=== PATIENT | male | born 1965 | race African-American/Black ===

== ENCOUNTER 2018-01-24 22:16 | Inpatient (IN) | payer OTHER, MEDICARE ==
[~2018-01-24] VITALS: Ht 193 cm; Wt 140.2 kg
[~2018-01-24 22:16] MED LIST: CALCIUM ACETAT667 M3 PO; METOPROLOL TART25 M1 PO; OXYCODONE5 M1 PO; PERCOCET 325 MG1 TA2 PO
--- NOTE | 2018-01-24 22:44 | ED CARDIAC/CP/PALPITATIONS ---
History of Present Illness General Chief Complaint: Dyspnea (COPD, CHF, Other) Stated Complaint: TROUBLE BREATHING X1 HOUR Source: patient, family Exam Limitations: no limitations Vital Signs & Intake/Output Vital Signs & Intake/Output Vital Signs Date Time Temp Pulse Resp B/P B/P Pulse O2 O2 Flow FiO2 Mean Ox Delivery Rate 01/240 96.9 106 22 188/110 92 Room Air ED Intake and Output 01/25 0000 01/24 1200 Intake Total Output Total Balance Patient 309 lb Weight Reconcile Medications Calcium Acetate 667 MG CAP 4 CAP PO AD PHOSPHORUS BINDER (Reported) Metoprolol Tartrate (Lopressor) 25 MG TAB 75 MG PO BID BP (Reported) OXYCODONE HCL (Oxycodone) 5 MG CAP 1-2 TAB PO Q6P PRN PAIN Triage Note: PT TO TRIAGE C/O SOB X 1HR THAT BEGAN AT REST. PER PT "FEELS LIKE I'M BUILDING UP WITH FLUID." PT ON HEMODIALYSIS M,W,F. AV FISTULA TO R ARM. RA SAT 92-93% IN TRIAGE. Triage Nurses Notes Reviewed? yes HPI: Patient was sitting watching TV when he developed a pressure sensation in the left anterior aspect of his chest as well as some nausea. Patient also began to have a nonproductive cough and felt short of breath. He has never had similar symptoms like this in the past. Patient is on dialysis and goes Thursday and Thursday and he has not missed dialysis. Patient states he did not take his medication today. Patient states the chest pain lasted approximately 20 minutes and then went away on its own. He states the nausea and lasted a little bit longer but it resolved while on the way here. Patient still feels slightly short of breath and has a nonproductive cough. (Brien PLASENCIA,Jaden Ac) Allergies Coded Allergies: NO KNOWN ALLERGIES (01/24/18) (Yaya PLASENCIA,Yoselin) Past History Travel History Traveled to [place] past 21 day No Medical History Any Pertinent Medical History? 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 No (Brien PLASENCIA,Jaden Ac) Review of Systems Review of Systems Constitutional: Reports: no symptoms. EENTM: Reports: no symptoms. Respiratory: Reports: see HPI, cough, short of breath. Cardiovascular: Reports: see HPI, chest pain. GI: Reports: see HPI, nausea. Genitourinary: Reports: no symptoms. Musculoskeletal: Reports: no symptoms. Skin: Reports: no symptoms. Neurological/Psychological: Reports: no symptoms. Hematologic/Endocrine: Reports: no symptoms. Immunologic/Allergic: Reports: no symptoms. All Other Systems: Reviewed and Negative (Brien PLASENCIA,Jaden Ac) Physical Exam Physical Exam General Appearance: well developed/nourished, alert, awake, anxious, moderate distress Head: atraumatic, normal appearance Eyes: Bilateral: PERRL, EOMI. Ears, Nose, Throat: normal pharynx, normal ENT inspection, hearing grossly normal Neck: normal inspection, supple, full range of motion, NO JVD EVIDENT BUT HE HAS A THICK NECK SO IT JUST MAY NOT BE VISABLE Respiratory: normal breath sounds, chest non-tender, no respiratory distress, lungs clear Cardiovascular: normal peripheral pulses, tachycardia Gastrointestinal: normal bowel sounds, soft, non-tender, OBESE Back: normal inspection, normal range of motion Extremities: normal inspection, normal capillary refill, normal range of motion, pedal edema Neurologic/Psych: no motor/sensory deficits, awake, alert, oriented x 3, normal mood/affect Skin: intact, diaphoresis Lymphatic: no anterior cervical dana Core Measures ACS in differential dx? Yes CVA/TIA Diagnosis No Sepsis Present: No Sepsis Focused Exam Completed? No (Brien PLASENCIA,Jaden Ac) Progress Differential Diagnosis: AMI, aortic dissection, hyperthyroid, musculoskeletal pain, myocarditis, pericarditis, pneumonia, pneumothorax Plan of Care: Orders Procedure Date/time Status Renal Dialysis Diet 01/25 B Active Patient Data 01/25 2356 Active ED Holding Orders 01/24 2353 Active Admit to inpatient 01/24 2353 Active Vital Signs 01/24 2353 Active Code Status 01/24 2353 Active Add-on Test (ER Only) 01/24 2349 Active MAGNESIUM 01/24 2244 Active Telemetry/Police Detective 01/25 2236 Active TROPONIN LEVEL 01/25 2236 Active COMPREHENSIVE METABOLIC PANEL 01/25 2236 Active CBC WITHOUT DIFFERENTIAL 01/25 2236 Complete EKG 01/25 2220 Active Laboratory Tests 01/24/184: Anion Gap 20 H, Estimated GFR 4 L, BUN/Creatinine Ratio 3.8 L, Glucose 101 H , Calcium 7.7 L, Magnesium Pending, Total Bilirubin 0.4, AST 22, ALT 28, Alkaline Phosphatase 402 H, Troponin I 0.06, Total Protein 7.1, Albumin 4.1, Globulin 3.0, Albumin/Globulin Ratio 1.4, CBC w Diff NO MAN DIFF REQ, RBC 3.40 L, MCV 91.4, MCH 29.8, MCHC 32.6 L, RDW 14.8 H, MPV 7.9, Gran % 75.4 H, Lymphocytes % 9.9 L, Monocytes % 9.0, Eosinophils % 5.1 H, Basophils % 0.6, Absolute Granulocytes 4.0, Absolute Lymphocytes 0.5 L, Absolute Monocytes 0.5, Absolute Eosinophils 0.3, Absolute Basophils 0 11:15 PM PATIENT SIGNED OUT TO ME BY DR URENA. PENDING LABS, WILL REQUIRE ADMISSION TO TELEMETRY. EKG CHANGES, CHEST PAIN. 12 AM D/W DR GONZALEZ. REMAINS CHEST PAIN FREE. ADMITTED TO TELEMETRY. ENDORSED TO MOD. WILL REQUIRE NEPHRO CONSULTATION FOR DIALYSIS IN AM. (Yoselin Javier MD) Diagnostic Imaging: Viewed by Me: Radiology Read. Discussed w/RAD: Radiology Read. Initial ED EKG: S TACH AT 1-3, DIFFUSE ST DEPRESSIONS CONSISTANT WITH ISCHEMIC CHANGES, NO OLD EKG TO COMPARE Rhythm Strip: sinus tachycardia Hand-Off Endorsed To: Yoselin Javier MD Endorsed Time: 2299 Pending: labs, Xray (Brien PLASENCIA,Jaden Ac) Departure Departure Disposition: STILL A PATIENT Condition: Stable Clinical Impression Primary Impression: ACS (acute coronary syndrome) Referrals: Mannie PLASENCIA,Richard Cheatham Departure Forms: Customer Survey General Discharge Information (Brien PLASENCIA,Jaden Ac) Departure Time of Disposition: 2350 Admission Note Spoke With: Jose Gonzalez MD Documentation of Exam: Documentation of any treatments & extenuating circumstances including Concerns Regarding Discharge (functional status, medication knowledge or non-compliance, living conditions, etc.) that warrant an admission rather than observation: [ TELE MONITOR, SERIAL EKG/TROPONIN, CARDIOLOGYL EVALUATION, ECHOCARDIOGRAM, NEPHROLOGY CONSULTATION] (Yaya PLASENCIA,Yoselin) Critical Care Note Critical Care Note Critical Care Time: mins: (90 MIN) (Brien PLASENCIA,Jaden Ac)
[2018-01-24 22:53] LABS: ABSOLUTE BASOPHIL COUNT 0 /CUMM (0.0-0.2); ABSOLUTE EOSINOPHIL COUNT 0.3 /CUMM (0.0-0.7); ABSOLUTE LYMPH COUNT 0.5 /CUMM (1.2-3.4); ABSOLUTE MONOCYTE COUNT 0.5 /CUMM (0.10-0.60); BASOPHIL % 0.6 % (0.0-2.0); EOSINOPHIL % 5.1 % (0-5); GRANULOCYTE % 75.4 % (42.2-75.2); MEAN CORPUSCULAR HGB 29.8 PG (27.0-31.0); MEAN CORPUSCULAR HGB CONC 32.6 G/DL (33.0-37.0); MEAN CORPUSCULAR VOLUME 91.4 FL (80.0-94.0); MEAN PLATELET VOLUME 7.9 FL (7.4-10.4); PLATELET COUNT 143 /CUMM (130-400); RBC DISTRIBUTION WIDTH 14.8 % (11.5-14.5); WHITE BLOOD CELL COUNT 5.4 /CUMM (4.8-10.8)
--- NOTE | 2018-01-24 23:16 | RADIOLOGY REPORT ---
EXAMINATION: XR PORTABLE CHEST CLINICAL INFORMATION: Chest pain COMPARISON: None TECHNIQUE: Portable frontal view of the chest was obtained. FINDINGS: There is slight elevation of the right hemidiaphragm. No focal consolidation is seen bilaterally. There is mild fullness of the central vasculature. No evidence of pneumothorax, significant pleural effusion, or overt pulmonary edema. Cardiac size appears within normal limits for technique. No acute osseous findings are seen. IMPRESSION: Mild fullness of the central vasculature, which could reflect mild congestion in the proper clinical setting. No additional acute findings identified.
--- NOTE | 2018-01-25 00:13 | History & Physical ---
Reza Wang 01/25/18 0012: General Information and HPI MD Statement: I have seen and personally examined DENY HERRON and documented this H&P. The patient is a 53 year old M who presented with a patient stated chief complaint of [Chest pain]. Source of Information: patient, old records Exam Limitations: no limitations History of Present Illness: is a 53 yo man with PMHx. of HTN, ESRD s/p renal transplant at 2011 presented to ED with a c/o SOB and chest pain started today at evening. He report that the SOB started suddenlty while he was setting at rest, no exacerbation or relieving factors, associated with mild left sided chest pain, pressure in nature, with no radiation, last for about 20 minutes and then resolved, patient denies any pain during the encounter, he denies any heart racing, vision changes, no medications administer at home. 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 EENTM: Reports: no symptoms. Cardiovascular: Reports: no symptoms. Respiratory: Reports: short of breath. GI: Reports: no symptoms. Genitourinary: Reports: no symptoms. Musculoskeletal: Reports: no symptoms. Skin: Reports: no symptoms. Neurological/Psychological: Reports: no symptoms. Hematologic/Endocrine: Reports: no symptoms. Immunologic/Allergic: Reports: no symptoms. All Other Systems: Reviewed and Negative Exam & Diagnostic Data Last 24 Hrs of Vital Signs/I&O Vital Signs Date Time Temp Pulse Resp B/P B/P Pulse O2 O2 Flow FiO2 Mean Ox Delivery Rate 01/25 1416 73 202/110 03/05 1024 72 140/80 01/25 0800 Nasal 3.0L Cannula 01/25 0630 97.8 64 16 152/110 95 03/05 0538 97.8 64 18 152/110 95 Nasal 3.0L Cannula 01/25 0145 98.1 63 18 166/106 97 Nasal 3.0L Cannula 01/25 0141 97 Nasal 3.0L Cannula 01/25 0103 97.0 62 20 168/92 97 Nasal 3.0L Cannula 01/25 0014 62 22 95 Nasal 4.0L Cannula 01/24 2220 96.9 106 22 188/110 92 Room Air Intake & Output 01/25 1600 01/25 0800 03 0000 Intake Total 510 Output Total 50 Balance 460 Intake, IV 150 Intake, Oral 360 Number 1 Bowel Movements Output, Urine 50 Patient 309 lb Weight Physical Exam General Appearance Alert, Oriented X3, No Acute Distress Skin No Rashes, No Breakdown, No Significant Lesion Neck Supple, No JVD Lymphatic Axillary nl, Cervical nl Cardiovascular Regular Rate, Normal S1, Normal S2, No Murmurs Lungs Clear to Auscultation, Normal Air Movement Abdomen Normal Bowel Sounds, Soft, No Tenderness Extremities No Edema, Normal Pulses Vascular Normal Pulses, Pulses Symmetrical Last 24 Hrs of Labs/Christiano: Laboratory Tests 01/25/18 1405: APTT Pending 01/25/18 1150: Hep Bs Antigen NONREACTIVE, Hep Bs Antibody REACTIVE 01/25/18 1109: Troponin I 42.60 *H 01/25/18 0530: Phosphorus 6.8 H, Magnesium 2.2 01/25/18 0530: Anion Gap 18 H, Estimated GFR 3 L, BUN/Creatinine Ratio 3.7 L, Troponin I 35.30 *H, Triglycerides 122, Cholesterol 178, LDL Cholesterol, Calc 105, HDL Cholesterol 49, Cholesterol/HDL Ratio 4, TSH 2.360, TSH &T3 &Free T4 Intrp 2.360 , CBC w Diff MAN DIFF ORDERED, RBC 3.19 L, MCV 89.7, MCH 30.7, MCHC 34.3, RDW 14.3, MPV 8.6, Gran % 78.6 H, Lymphocytes % 9.4 L, Monocytes % 8.2, Eosinophils % 3.4, Basophils % 0.4, Absolute Granulocytes 5.2, Segmented Neutrophils 70, Band Neutrophils 1, Absolute Lymphocytes 0.6 L, Lymphocytes 16 L, Monocytes 11 H, Absolute Monocytes 0.5, Eosinophils 2, Absolute Eosinophils 0.2, Absolute Basophils 0, Platelet Estimate ADEQUATE, Normocytic RBCs VERIFIED, Normochromic RBCs VERIFIED 01/24/18 2244: Anion Gap 20 H, Estimated GFR 4 L, BUN/Creatinine Ratio 3.8 L, Glucose 101 H , Calcium 7.7 L, Magnesium 2.1, Total Bilirubin 0.4, AST 22, ALT 28, Alkaline Phosphatase 402 H, Troponin I 0.06, Total Protein 7.1, Albumin 4.1, Globulin 3.0, Albumin/Globulin Ratio 1.4, CBC w Diff NO MAN DIFF REQ, RBC 3.40 L, MCV 91.4, MCH 29.8, MCHC 32.6 L, RDW 14.8 H, MPV 7.9, Gran % 75.4 H, Lymphocytes % 9.9 L, Monocytes % 9.0, Eosinophils % 5.1 H, Basophils % 0.6, Absolute Granulocytes 4.0, Absolute Lymphocytes 0.5 L, Absolute Monocytes 0.5, Absolute Eosinophils 0.3, Absolute Basophils 0 Diagnostic Data EKG Results ST depression at anterolateral lead CXR Results IMPRESSION: Mild fullness of the central vasculature, which could reflect mild congestion in the proper clinical setting. No additional acute findings identified. Assessment/Plan Assessment: is a 53 yo man with PMHx. of HTN, ESRD s/p renal transplant at 2011 presented to ED with a c/o SOB and chest pain started today at evening. Found to have anterolateral ST-depression. Pain resolved prior to presentation to ED, he received 1 dose of aspirin and B-adalberto. Assessment: #NSTEMI #ESRD #Hx. of HTN Plan: -Will admitt the patient to tele floor -Case discussed with Dr. vance, no IV heparin for now given that the patient is asymptomatic and troponin negative. For now aspirin -If patient start to have +ve troponin start IV heparin - to evaluate the patient at am -Serial troponin and EKG -Nephrology consult for dialysis at am (His schedule is MON, WED, FRID) -Will continue home dose of lopressor -Statin -Will check lipid panel, TSH -Echocardiogram DVT ppx. SC heparin Full code As Ranked By This Provider Problem List: 1. ACS (acute coronary syndrome) Core Measures/Misc (08/09) Acute Coronary Syndrome ACS Diagnosis: Yes Congestive Heart Failure Congestive Heart Failure Diagnosis No Cerebrovascular Accident CVA/TIA Diagnosis: No VTE (View Protocol) VTE Risk Factors Age>40 No Mechanical VTE Prophylaxis d/t N/A MechProphylax Ordered No VTE Pharm Prophylaxis d/t NA PharmProphylax ordered Sepsis (View protocol) Sepsis Present: No Jose Vance MD 01/25/18 1217: General Information and HPI Allergies/Medications Home Med list Aspirin (Aspirin*) 81 MG TAB.CHEW 1 TAB PO DAILY heart health Atorvastatin Calcium 40 MG TABLET 1 TAB PO DAILY heart health Calcium Acetate 667 MG CAPSULE 4 CAP PO TID PHOSPHORUS BINDER (Reported) Heparin (Heparin-1/2NS 25,000 Units/500) 25,000 UNIT/500 ML (50 UNIT/ML) IV.SOLN 1 UNIT IV CONTINOUS INFUSION Acute coronary syndrome Metoprolol Tartrate 25 MG TABLET 3 TAB PO BID BP (Reported) Attending MD Review Statement Attending Statement Attending MD Statement: examined this patient, discuss w/resident/PA/MANAGER SCIENTIFIC, agreed w/resident/PA/MANAGER SCIENTIFIC, discussed with family, discussed with nursing, discussed with case mgmt, reviewed images, amended to note Attending Assessment/Plan: The patient is a 53-year-old male with history of hypertension, end-stage renal disease, status post failed renal transplant on hemodialysis. He presented to the emergency department with complaint of left-sided chest pressure. The chest pressure was an 8 out of 10 for approximately 20 minutes, and then gradually improved over the next hour. He was pain-free after an hour, and he is currently asymptomatic. No palpitations. He noted mild shortness of breath associated with the discomfort. His initial troponin was negative, however he was noted to have ST depressions on EKG. Second troponin is positive consistent with non-ST elevation myocardial infarction. Assessment: 1. End-stage renal disease on hematology 2. Acute non-ST elevation myocardial infarct, now asymptomatic Plan: * Continue aspirin * Continue metoprolol * Continue IV heparin * Echocardiogram * Dialysis as per renal * Transfer to [facility] for cardiac catheterization with Dr. Norman, and percutaneous coronary intervention if indicated.
[2018-01-25 01:45] VITALS: BP 166/106
[2018-01-25 05:38] VITALS: BP 152/110
[2018-01-25 06:02] LABS: ABSOLUTE BASOPHIL COUNT 0 /CUMM (0.0-0.2); ABSOLUTE EOSINOPHIL COUNT 0.2 /CUMM (0.0-0.7); ABSOLUTE GRANULOCYTE CT 5.2 /CUMM (1.4-6.5); ABSOLUTE LYMPH COUNT 0.6 /CUMM (1.2-3.4); ABSOLUTE MONOCYTE COUNT 0.5 /CUMM (0.10-0.60); BASOPHIL % 0.4 % (0.0-2.0); EOSINOPHIL % 3.4 % (0-5); GRANULOCYTE % 78.6 % (42.2-75.2); HEMATOCRIT 28.6 % (42-52); MEAN CORPUSCULAR HGB 30.7 PG (27.0-31.0); MEAN CORPUSCULAR HGB CONC 34.3 G/DL (33.0-37.0); MEAN CORPUSCULAR VOLUME 89.7 FL (80.0-94.0); MEAN PLATELET VOLUME 8.6 FL (7.4-10.4); PLATELET COUNT 151 /CUMM (130-400); RBC DISTRIBUTION WIDTH 14.3 % (11.5-14.5); RED BLOOD CELL CT 3.19 /CUMM (4.70-6.10); WHITE BLOOD CELL COUNT 6.6 /CUMM (4.8-10.8)
[2018-01-25 06:30] VITALS: BP 152/110
--- NOTE | 2018-01-25 07:02 | Event Note ---
Event Note Event Note: Was notified patient had 13 beat run of vtach Patient was asymptomatic. Denied any chest pain or palpitations. EKG: no acute changes from previous EKG Trop: 35.[address] Vance IV heparin ordered Repeat EKG and Troponin
--- NOTE | 2018-01-25 07:56 | PN- Housestaff ---
Subjective Follow-up For: NSTEMI Tele-Events Since Last Visit: 13 BEAT V.TACH OVERNIHT Subjective: seen and examined Patient reports having shortness of breath and unable to lye Objective Last 24 Hrs of Vital Signs/I&O Vital Signs Date Time Temp Pulse Resp B/P B/P Pulse O2 O2 Flow FiO2 Mean Ox Delivery Rate 01/25 0630 97.8 64 16 152/110 95 01/25 0538 97.8 64 18 152/110 95 Nasal 3.0L Cannula 01/25 0145 98.1 63 18 166/106 97 Nasal 3.0L Cannula 01/25 0141 97 Nasal 3.0L Cannula 01/25 0103 97.0 62 20 168/92 97 Nasal 3.0L Cannula 01/25 0014 62 22 95 Nasal 4.0L Cannula 01/24 2220 96.9 106 22 188/110 92 Room Air Intake & Output 01/25 0800 01/25 0000 01/24 1600 Intake Total Output Total Balance Patient 140 kg Weight
--- NOTE | 2018-01-25 09:41 | Patient Discharge Instructions ---
Discharge Instructions General Discharge Information You were seen/treated for: Acute coronary syndrome ESRD on dialysis Special Instructions: Please follow up with your Director Furniture in a week Please follow up with your smoke jumper supervisor in a week Please follow up with your PCP in a week Diet Recommended Diet: Renal Dialysis Activity Activity Self Limited: Yes Acute Coronary Syndrome Inclusion Criteria At DC or during hospital stay patient has or had the following: ACS DIAGNOSIS Yes Discharge Core Measures Meds if any: Prescribed or Continued at Discharge HETAL/ARB if EF <40% No Aspirin Yes Beta-Leobardo Yes Statin Yes Meds if any: NOT Prescribed or Continued at Discharge Congestive Heart Failure Inclusion Criteria At DC or during hospital stay patient has or had the following: CHF DIAGNOSIS No Discharge Core Measures Meds if any: Prescribed or Continued at Discharge Meds if any: NOT Prescribed or Continued at Discharge Cerebrovascular accident Inclusion Criteria At DC or during hospital stay patient has or had the following: CVA/TIA Diagnosis No Discharge Core Measures Meds if any: Prescribed or Continued at Discharge Meds if any: NOT Prescribed or Continued at Discharge Venous thromboembolism Inclusion Criteria VTE Diagnosis No VTE Type NONE VTE Confirmed by (Test) NONE Discharge Core Measures - Per Current guidelines, there needs to be overlap - treatment for the first 5 days of Warfarin therapy. - If discharged on Warfarin prior to 5 days of - overlap therapy, the patient will need to be - assessed for post discharge needs including - *Post discharge parental anticoagulation - *Warfarin and/or parental anticoagulation education - *Follow up date to check INR post discharge At least 5 days overlap therapy as Inpatient No Meds if any: Prescribed or Continued at Discharge Note: Overlap Therapy is Warfarin and Anticoagulant Meds if any: NOT Prescribed or Continued at Discharge
--- NOTE | 2018-01-25 09:45 | RADIOLOGY REPORT ---
EXAMINATION: XR PORTABLE CHEST CLINICAL INFORMATION: Shortness of breath. COMPARISON: Chest radiograph dated 01/24/2018 TECHNIQUE: Portable frontal view of the chest was obtained. FINDINGS: Study is degraded secondary to patient rotation. Cardiomediastinal silhouette appears similar to prior study. There is uncoiling and atherosclerotic calcification of the aorta. No focal consolidation to indicate pneumonia. Right mid lung linear opacities, likely representing atelectasis. Pulmonary vasculature is stable in appearance. No pneumothorax or large pleural effusion. IMPRESSION: Stable appearance of the heart and lungs when compared with 01/24/2018 chest radiograph.
[2018-01-25 10:24] VITALS: BP 140/80
--- NOTE | 2018-01-25 10:28 | Discharge Summary ---
Visit Information Visit Dates Admission Date: 01/24/18 Discharge Date: 01/25/18 Hospital Course Course Attending Physician: Jose Vance MD Primary Care Physician: Patient Has No Primary Care Dr Hospital Course: Patient is a 53 yo M with PMHx. of HTN, ESRD on dialysis M/W/F 5yrs after renal transplantation for Hypertensive renal failure. He presented to ED with a c/o SOB and chest pain started yesterday evening. He didnot miss any of his dialysis schedule. His pain resolved prior to ER arrival after a dose of aspirin and betablocker. VS at presentation are afebrile, HR 106, RR 22 BP 188/110mmHg, saturating 92 on 4L oxygen. Physical exam - AAO X3, HEENT: PERRLA, Heart s1, S2 heard no mumurs, chest - decreased air entry through out, abdomen nontender, Lower extremiteis pulses palpable. Labs did show a Cr of 14.7 -->15.5, Trop 0.06 --> 35. calcium 7.7. EKG shows sinus tachycardia with T wave depression in anterolateral leads. QTc 498. Admitted to telemetry floor under cardiology service. Overnight he remained stable hemodynamically, he did have a single run of 13 bear V.tach on monitor. Intially as troponins were negative, didnt start on any IV heparin. At around 5 : 30am his troponin raised from 0.06 to 35 followed by which he was started on IV heparin. Also started on aspirin 81mg, atorvastatin 40mg after a dose of aspirin 325mg. His quiac is grossly positive. He remained without chest pain, however did have increase in SOB with pinkish phelgm production. He underwent dialysis in this morning as per his schedule after consulting nephrology. His home medications metoprolol tartarate and calcium acetate were continued. As the Troponin elevation is concerning for ongoing acute myocardial injury, it is considered to transfer him to [facility] for emergent catheterization under Dr.Tuohy mayers service. DVT ppx. IV heparin Full code NPO for the procedure. troponin trended up to 42 at 11am. Complications: Elevated troponin requiring transfer for anticipated cath Allergies: Coded Allergies: NO KNOWN ALLERGIES (01/24/18) Significant Procedures: CXR at admission 01/24/18 IMPRESSION: Mild fullness of the central vasculature, which could reflect mild congestion in the proper clinical setting. No additional acute findings identified. CXR on 01/25/18 IMPRESSION: Stable appearance of the heart and lungs when compared with 01/24/2018 chest radiograph. ECHOCARDIOGRAM Age: 53 : 1965 Gender: M Exam Date: 01/25/2018 08:55 Ht (in): 76 Wt (lb): 308 BSA: 2.78 BP: 152 / 110 Indications: Chest Pain Rhythm: Sinus Technical Quality: Technically difficult study, FINDINGS Left Ventricle Normal size left ventricle. Borderline left ventricular systolic function. LVEF estimated at 50%. Lateral hypokinesis Right Ventricle Normal right ventricular size and function. Right Atrium Normal right atrial size. Left Atrium Mild left atrial dilatation. Mitral Valve Moderate mitral annular calcification. Aortic Valve Aortic valve mildly thickened. No aortic stenosis. Trace aortic regurgitation. Tricuspid Valve Tricuspid valve not well visualized, grossly normal. Trace tricuspid regurgitation. Right ventricular systolic pressure estimated to be elevated at 50 mmHg. Pulmonic Valve Pulmonic valve not well visualized, grossly normal. Trace pulmonic regurgitation. Pericardium No pericardial effusion. Great Vessels Normal size aortic root. CONCLUSIONS Technically difficult study, Borderline left ventricular systolic function. LVEF estimated at 50%. Lateral hypokinesis. Mild left atrial dilatation. Trace aortic regurgitation. Trace tricuspid regurgitation. Right ventricular systolic pressure estimated to be elevated at 50 mmHg. Trace pulmonic regurgitation. Jose Vance M.D. (Electronically Signed) Final Date: 25 January 2018 12:38 MEASUREMENTS (Male / Female) Normal Values 2D ECHO LV Diastolic Diameter PLAX 5.6 cm 4.2 - 5.9 / 3.9 - 5.3 cm LV Systolic Diameter PLAX 3.9 cm 2.1 - 4.0 cm LV Fractional Shortening PLAX 30.4 % 25 - 46 % LV Ejection Fraction 2D Teich 57.1 % IVS Diastolic Thickness 1.5 cm LVPW Diastolic Thickness 1.4 cm LV Relative Wall Thickness 0.5 RV Internal Dim ED PLAX 3.6 cm 1.9 - 3.8 cm LVOT Diameter 2.1 cm Aortic Root Diameter 2.5 cm LA Systolic Diameter LX 4.4 cm 3.0 - 4.0 / 2.7 - 3.8 cm Ascending Aorta Diameter 3.5 cm DOPPLER AV Peak Velocity 143.0 cm/s AV Peak Gradient 8.2 mmHg AV Mean Velocity 93.3 cm/s AV Mean Gradient 4.0 mmHg AV Velocity Time Integral 30.5 cm LVOT Peak Velocity 82.7 cm/s LVOT Peak Gradient 2.7 mmHg LVOT Mean Velocity 51.7 cm/s LVOT Mean Gradient 1.0 mmHg LVOT Velocity Time Integral 18.7 cm LVOT Stroke Volume 64.8 cm AV Area Cont Eq vti 2.1 cm AV Area Cont Eq pk 2.0 cm MV Peak Velocity 116.0 cm/s MV Peak Gradient 5.4 mmHg MV Mean Velocity 72.0 cm/s MV Mean Gradient 2.0 mmHg Mitral E Point Velocity 106.0 cm/s Mitral A Point Velocity 95.8 cm/s Mitral E to A Ratio 1.1 MV PHT Velocity 118.0 cm/s MV Deceleration [place] 346.0 cm/s MV Pressure Half Time 102.3 ms MV Area PHT 2.2 cm MV Deceleration Time 222.0 ms MR Peak Velocity 591.5 cm/s MR Peak Gradient 139.9 mmHg TR Peak Velocity 334.0 cm/s TR Peak Gradient 44.6 mmHg Right Atrial Pressure 10.0 mmHg Pulmonary Artery Systolic Pressu 54.6 mmHg Right Ventricular Systolic Press 54.6 mmHg PV Peak Velocity 89.6 cm/s PV Peak Gradient 3.2 mmHg PV Mean Velocity 57.3 cm/s PV Mean Gradient 2.0 mmHg PV Velocity Time Integral 18.7 cm DICTATED BY: Jose Vance MD DATE/TIME DICTATED:01/25/181238 UPHOLSTERY PARTS SORTER:LANE DATE/TIME TRANSCRIBED:01/25/181238 CONFIDENTIAL, DO NOT COPY WITHOUT APPROPRIATE AUTHORIZATION. <Electronically signed in Other Vendor System> SIGNED BY: Jose Vance MD 01/25/181238 Pertinent Lab Results: as above Disposition Summary Disposition Principal Diagnosis: Acute coronary syndrome - NSTEMI Additional Diagnosis: ESRD on dialysis M/W/F Discharge Disposition: other general hospital Discharge Instructions General Discharge Information Code Status: Full Code Patient's Diet: Renal dialysis diet Patient's Activity: as tolerated Follow-Up Instructions/Appts: Please follow up with your Auto Damage Appraiser in a week please follow up with your bead wrapper in a week Medications at Discharge Discharge Medications: Continue taking these medications: Metoprolol Tartrate (Metoprolol Tartrate) 25 MG TABLET 3 Tablet ORAL TWICE DAILY Comments: Last Taken: 01/25/18 Time: 8AM Calcium Acetate (Calcium Acetate) 667 MG CAPSULE 4 Capsule ORAL THREE TIMES DAILY Comments: NOT GIVEN IN HOSPITAL Start taking the following new medications: Atorvastatin Calcium (Atorvastatin Calcium) 40 MG TABLET 1 Tablet ORAL DAILY Qty = 30 No Refills Comments: Last Taken: 01/24/18 Time: 5PM Aspirin (Aspirin*) 81 MG TAB.CHEW 1 Tablet ORAL DAILY Qty = 30 No Refills Comments: NOT GIVEN IN HOSPITAL Heparin (Heparin-1/2NS 25,000 Units/500) 25,000 UNIT/500 ML (50 UNIT/ML) IV.SOLN 1 Unit INTRAVEN CONTINUOUS INFUSION Qty = 1 No Refills Comments: Last Taken: 01/25/18 Time: 8AM Copies To: Glenn PLASENCIA,Darwin Escudero; Emerson PLASENCIA,Corey Florentino; Rajiv PLASENCIA,Jose Attending MD Review Statement Documenting Attending: Jose Vance MD
[2018-01-25] MEDS ORDERED: ATORVASTATIN CA40 M1 PO (10:31)
[2018-01-25] MEDS ORDERED: ASPIRIN81 M4 PO (10:31)
[2018-01-25] MEDS ORDERED: HEPARIN-1/25000 UNI1 IV (10:34)
--- NOTE | 2018-01-25 10:50 | Cons- Nephrology ---
See Addendum General Information and HPI Consulting Request Date of Consult: 01/25/18 Requested By: Jose Vance MD Reason for Consult: ESRD Source of Information: patient, old records Exam Limitations: no limitations History of Present Illness: The patient is a 53-year-old man with a past medical history most significant for end-stage renal disease status post failed renal transplant on hemodialysis, hypertension who presented to the emergency room with chest pain and shortness of breath which began last night. Initial troponin negative however the second troponin 35.3. Chest x-ray with mild fullness of the central vasculature. The patient does not think he could lay flat and says he would feel much better with dialysis. Tentative plans to transfer him to [facility] later this afternoon for cardiac cath. His last dialysis was on Thursday and he left at 0.3 kg below his target weight. Should note that he gets approximately 2-3 L up with dialysis and generally runs high blood pressures without any significant drops. Allergies/Medications Allergies: Coded Allergies: NO KNOWN ALLERGIES (01/24/18) Home Med List: Aspirin (Aspirin*) 81 MG TAB.CHEW 1 TAB PO DAILY heart health Atorvastatin Calcium 40 MG TABLET 1 TAB PO DAILY heart health Calcium Acetate 667 MG CAPSULE 4 CAP PO TID PHOSPHORUS BINDER (Reported) Heparin (Heparin-1/2NS 25,000 Units/500) 25,000 UNIT/500 ML (50 UNIT/ML) IV.SOLN 1 UNIT IV CONTINOUS INFUSION Acute coronary syndrome Metoprolol Tartrate 25 MG TABLET 3 TAB PO BID BP (Reported) Current Medications: Current Medications Sig/Barbara Start time Last Medication Dose Route Stop Time Status Admin Aspirin 0 .STK-MED ONE 01/24 2247 DC PO Aspirin 325 MG ONCE ONE 01/24 2245 DC 01/24 PO 01/24 Atorvastatin Calcium 40 MG 1700 01/25 1700 AC PO Heparin Sodium/ 25,000 UNIT Q24H 01/25 0715 AC 01/25 Dextrose IV 0800 Dextrose/Water 500 ML Metoprolol Tartrate 75 MG BID 01/25 1000 CAN PO Metoprolol Tartrate 75 MG BID 01/25 1000 AC 01/25 PO 0800 Metoprolol Tartrate 0 .STK-MED ONE 01/24 2247 DC PO Metoprolol Tartrate 75 MG ONCE ONE 01/24 2245 DC 01/24 PO 03/04 2246 2243 Multivitamins 1 TAB DAILY 01/25 1000 AC 01/25 PO 0800 Potassium Chloride 60 MEQ ONCE ONE 01/25 0600 DC PO 01/25 0601 Review of Systems Review of Systems: Complete 14 point ROS neg except as per HPI. 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 Home Smoking Status: Former Smoker ETOH Use: denies use Illicit Drug Use: denies illicit drug use Exam & Diagnostic Data Vital Signs and I&O Vital Signs Date Time Temp Pulse Resp B/P B/P Pulse O2 O2 Flow FiO2 Mean Ox Delivery Rate 01/25 1024 72 140/80 01/25 0800 Nasal 3.0L Cannula 01/25 0630 97.8 64 16 152/110 95 01/25 0538 97.8 64 18 152/110 95 Nasal 3.0L Cannula 01/25 0145 98.1 63 18 166/106 97 Nasal 3.0L Cannula 01/25 0141 97 Nasal 3.0L Cannula 01/25 0103 97.0 62 20 168/92 97 Nasal 3.0L Cannula 01/25 0014 62 22 95 Nasal 4.0L Cannula 01/24 2220 96.9 106 22 188/110 92 Room Air Intake & Output 01/25 1600 01/25 0400 01/24 1600 01/24 0400 01/23 1600 01/23 0400 Intake Total Output Total Balance Patient 309 lb Weight Physical Exam: Gen - mildly dyspneic Head - NCAT Eyes - anicteric sclera, EOMI Neck - supple, no LAD CV - RRR, no m/r/g Chest - scant basilar crackles without wheezes/rhonchi Abd - soft, NTND, morbidly obese Upper ext - RUE AVF +thrill/+bruit, warm, no edema Lower ext - warm, no significant edema Skin - no rash or jaundice Neuro - AOX3, grossly nonfocal Results Pertinent Lab Results: Laboratory Tests 01/25 01/25 0530 0530 Chemistry Sodium (137 - 145 mmol/L) 139 Potassium (3.5 - 5.1 mmol/L) 4.5 Chloride (98 - 107 mmol/L) 101 Carbon Dioxide (22 - 30 mmol/L) 20 L Anion Gap (5 - 16) 18 H BUN (9 - 20 mg/dL) 58 H Creatinine (0.7 - 1.2 mg/dL) 15.5 *H Estimated GFR (>60 ml/min) 3 L BUN/Creatinine Ratio (7 - 25 %) 3.7 L Phosphorus (2.5 - 4.5 mg/dL) 6.8 H Magnesium (1.6 - 2.3 mg/dL) 2.2 Troponin I (<0.11 ng/ml) 35.30 *H Triglycerides (<150 mg/dL) 122 Cholesterol (< 200 MG/DL) 178 LDL Cholesterol, Calc (65 - 129 mg/dL) 105 HDL Cholesterol (40 - 60 mg/dL) 49 Cholesterol/HDL Ratio (0.00 - 4.88 %) 4 TSH (0.270 - 4.200 uIU/mL) 2.360 TSH &T3 &Free T4 Intrp (0.27 - 4.20 uIU/mL) 2.360 Hematology CBC w Diff MAN DIFF ORDERED WBC (4.8 - 10.8 /CUMM) 6.6 RBC (4.70 - 6.10 /CUMM) 3.19 L Hgb (14.0 - 18.0 G/DL) 9.8 L Hct (42 - 52 %) 28.6 L MCV (80.0 - 94.0 FL) 89.7 MCH (27.0 - 31.0 PG) 30.7 MCHC (33.0 - 37.0 G/DL) 34.3 RDW (11.5 - 14.5 %) 14.3 Plt Count (130 - 400 /CUMM) 151 MPV (7.4 - 10.4 FL) 8.6 Gran % (42.2 - 75.2 %) 78.6 H Lymphocytes % (20.5 - 51.1 %) 9.4 L Monocytes % (1.7 - 9.3 %) 8.2 Eosinophils % (0 - 5 %) 3.4 Basophils % (0.0 - 2.0 %) 0.4 Absolute Granulocytes (1.4 - 6.5 /CUMM) 5.2 Segmented Neutrophils (42.2 - 75.2 %) 70 Band Neutrophils (0.0 - 5.0 %) 1 Absolute Lymphocytes (1.2 - 3.4 /CUMM) 0.6 L Lymphocytes (20.5 - 51.1 %) 16 L Monocytes (1.7 - 9.3 %) 11 H Absolute Monocytes (0.10 - 0.60 /CUMM) 0.5 Eosinophils (0 - 5.0 %) 2 Absolute Eosinophils (0.0 - 0.7 /CUMM) 0.2 Absolute Basophils (0.0 - 0.2 /CUMM) 0 Platelet Estimate (ADEQUATE) ADEQUATE Normocytic RBCs VERIFIED Normochromic RBCs VERIFIED 01/24 2244 Chemistry Sodium (137 - 145 mmol/L) 139 Potassium (3.5 - 5.1 mmol/L) 3.4 L Chloride (98 - 107 mmol/L) 100 Carbon Dioxide (22 - 30 mmol/L) 20 L Anion Gap (5 - 16) 20 H BUN (9 - 20 mg/dL) 56 H Creatinine (0.7 - 1.2 mg/dL) 14.7 *H Estimated GFR (>60 ml/min) 4 L BUN/Creatinine Ratio (7 - 25 %) 3.8 L Glucose (65 - 99 mg/dL) 101 H Calcium (8.4 - 10.2 mg/dL) 7.7 L Magnesium (1.6 - 2.3 mg/dL) 2.1 Total Bilirubin (0.2 - 1.3 mg/dL) 0.4 AST (17 - 59 U/L) 22 ALT (21 - 72 U/L) 28 Alkaline Phosphatase (< 127 U/L) 402 H Troponin I (<0.11 ng/ml) 0.06 Total Protein (6.3 - 8.2 g/dL) 7.1 Albumin (3.5 - 5.0 g/dL) 4.1 Globulin (1.9 - 4.2 gm/dL) 3.0 Albumin/Globulin Ratio (1.1 - 2.2 %) 1.4 Hematology CBC w Diff NO MAN DIFF REQ WBC (4.8 - 10.8 /CUMM) 5.4 RBC (4.70 - 6.10 /CUMM) 3.40 L Hgb (14.0 - 18.0 G/DL) 10.1 L Hct (42 - 52 %) 31.0 L MCV (80.0 - 94.0 FL) 91.4 MCH (27.0 - 31.0 PG) 29.8 MCHC (33.0 - 37.0 G/DL) 32.6 L RDW (11.5 - 14.5 %) 14.8 H Plt Count (130 - 400 /CUMM) 143 MPV (7.4 - 10.4 FL) 7.9 Gran % (42.2 - 75.2 %) 75.4 H Lymphocytes % (20.5 - 51.1 %) 9.9 L Monocytes % (1.7 - 9.3 %) 9.0 Eosinophils % (0 - 5 %) 5.1 H Basophils % (0.0 - 2.0 %) 0.6 Absolute Granulocytes (1.4 - 6.5 /CUMM) 4.0 Absolute Lymphocytes (1.2 - 3.4 /CUMM) 0.5 L Absolute Monocytes (0.10 - 0.60 /CUMM) 0.5 Absolute Eosinophils (0.0 - 0.7 /CUMM) 0.3 Absolute Basophils (0.0 - 0.2 /CUMM) 0 Imaging/Other Studies: Chest x-ray reviewed Assessment/Plan Assessment/Recommendations Assessment: ESRD - Due for HD today. Will be performing HD prior to transfer for cardiac cath. NSTEMI - Pending transfer to . Ideally needs to be able to lay flat to avoid BIPAP/Intubation. Will remove fluid as tolerated with dialysis with careful attention to hemodynamics. Anemia - Hg 9.8 - Not on GINO as outpatient. Monitor Hg - may need to start Epogen. Recommendations: -HD today - 2-3L UF as tolerated by hemodynamics -Pt to be followed for HD at [facility] after transfer -Hold on Epogen for today Please call [phone] with ?'s
--- NOTE | 2018-01-25 12:39 | ECHOCARDIOGRAM REPORT ---
DENY HERRON Age: 53 : 1965 Gender: M Exam Date: 01/25/2018 08:55 Exam Location: 1 [address] Ht (in): 76 Wt (lb): 308 BSA: 2.78 BP: 152 / 110 Ordering Physician: Reza High MD Referring Physician: Reza High MD Technologist: Phil Saavedra [facility] Room Number: 180-2 Indications: Chest Pain Rhythm: Sinus Technical Quality: Technically difficult study, FINDINGS Left Ventricle Normal size left ventricle. Borderline left ventricular systolic function. LVEF estimated at 50%. Lateral hypokinesis Right Ventricle Normal right ventricular size and function. Right Atrium Normal right atrial size. Left Atrium Mild left atrial dilatation. Mitral Valve Moderate mitral annular calcification. Aortic Valve Aortic valve mildly thickened. No aortic stenosis. Trace aortic regurgitation. Tricuspid Valve Tricuspid valve not well visualized, grossly normal. Trace tricuspid regurgitation. Right ventricular systolic pressure estimated to be elevated at 50 mmHg. Pulmonic Valve Pulmonic valve not well visualized, grossly normal. Trace pulmonic regurgitation. Pericardium No pericardial effusion. Great Vessels Normal size aortic root. CONCLUSIONS Technically difficult study, Borderline left ventricular systolic function. LVEF estimated at 50%. Lateral hypokinesis. Mild left atrial dilatation. Trace aortic regurgitation. Trace tricuspid regurgitation. Right ventricular systolic pressure estimated to be elevated at 50 mmHg. Trace pulmonic regurgitation. Jose Vance M.D. (Electronically Signed) Final Date: 25 January 2018 12:38 MEASUREMENTS (Male / Female) Normal Values 2D ECHO LV Diastolic Diameter PLAX 5.6 cm 4.2 - 5.9 / 3.9 - 5.3 cm LV Systolic Diameter PLAX 3.9 cm 2.1 - 4.0 cm LV Fractional Shortening PLAX 30.4 % 25 - 46 % LV Ejection Fraction 2D Teich 57.1 % IVS Diastolic Thickness 1.5 cm LVPW Diastolic Thickness 1.4 cm LV Relative Wall Thickness 0.5 RV Internal Dim ED PLAX 3.6 cm 1.9 - 3.8 cm LVOT Diameter 2.1 cm Aortic Root Diameter 2.5 cm LA Systolic Diameter LX 4.4 cm 3.0 - 4.0 / 2.7 - 3.8 cm Ascending Aorta Diameter 3.5 cm DOPPLER AV Peak Velocity 143.0 cm/s AV Peak Gradient 8.2 mmHg AV Mean Velocity 93.3 cm/s AV Mean Gradient 4.0 mmHg AV Velocity Time Integral 30.5 cm LVOT Peak Velocity 82.7 cm/s LVOT Peak Gradient 2.7 mmHg LVOT Mean Velocity 51.7 cm/s LVOT Mean Gradient 1.0 mmHg LVOT Velocity Time Integral 18.7 cm LVOT Stroke Volume 64.8 cm AV Area Cont Eq vti 2.1 cm AV Area Cont Eq pk 2.0 cm MV Peak Velocity 116.0 cm/s MV Peak Gradient 5.4 mmHg MV Mean Velocity 72.0 cm/s MV Mean Gradient 2.0 mmHg Mitral E Point Velocity 106.0 cm/s Mitral A Point Velocity 95.8 cm/s Mitral E to A Ratio 1.1 MV PHT Velocity 118.0 cm/s MV Deceleration [place] 346.0 cm/s MV Pressure Half Time 102.3 ms MV Area PHT 2.2 cm MV Deceleration Time 222.0 ms MR Peak Velocity 591.5 cm/s MR Peak Gradient 139.9 mmHg TR Peak Velocity 334.0 cm/s TR Peak Gradient 44.6 mmHg Right Atrial Pressure 10.0 mmHg Pulmonary Artery Systolic Pressu 54.6 mmHg Right Ventricular Systolic Press 54.6 mmHg PV Peak Velocity 89.6 cm/s PV Peak Gradient 3.2 mmHg PV Mean Velocity 57.3 cm/s PV Mean Gradient 2.0 mmHg PV Velocity Time Integral 18.7 cm
[2018-01-25 14:16] VITALS: BP 202/110
[2018-01-25 14:33] LABS: PTT 42 SEC (25-37)
== END 2018-01-25 16:45 | disposition short-term general hospital (02) | DRG 280 ==
LOC: ERH 22:16 → 1NO 23:53 → ERHI 23:53 → EDBEDREQ 01-25 00:25 → ERHI 01-25 00:28 → ENRESERV 01-25 00:48 → 1NO 01-25 01:38 → ENPENDDIS 01-25 11:53 → 1NO 01-25 16:45
PROVIDERS: Emergency Medicine; Internal Medicine Cardiovascular Disease; Student in an Organized Health Care Education/Training Program
PROC: 5A1D70Z Performance of Urinary Filtration, Intermittent, Less than 6 Hours Per Day (ICD-10-PCS; principal; 2018-01-25)
DX: I21.4 Non-ST elevation (NSTEMI) myocardial infarction (principal); N18.6 End stage renal disease; I12.0 Hypertensive chronic kidney disease with stage 5 chronic kidney disease or end stage renal disease; Z94.0 Kidney transplant status; Z99.2 Dependence on renal dialysis; I20.0 Unstable angina; Z87.891 Personal history of nicotine dependence
CPT/HCPCS: ERO; 36415; 71045; 82436; 93005; 93010; 93306; 99291; J1644; J7060